=== PATIENT | female | born 1990 | race Caucasian/White ===

== ENCOUNTER → 2018-11-24 | Outpatient (CLI) | payer OTHER ==
[~2018-11-24] MED LIST: GADOBUTROL 7.5 MMOL/7.5 ML VIAL ONE
== END | disposition home or self-care (01) ==
LOC: CFH 14:46
PROVIDERS: ATTEND Specialist
DX: Z12.39 Encounter for other screening for malignant neoplasm of breast (principal); M54.2 Cervicalgia; F10.20 Alcohol dependence, uncomplicated; F43.12 Post-traumatic stress disorder, chronic; Z79.899 Other long term (current) drug therapy; Z85.3 Personal history of malignant neoplasm of breast
CPT/HCPCS: 77049; A9585